=== PATIENT | female | born 1965 | race Caucasian/White ===

== ENCOUNTER 2022-06-23 11:31 | Day surgery (SDC) | payer OTHER, SELFPAY ==
[2022-06-07 14:29] VITALS: BMI 31.1
[2022-06-23 12:05] VITALS: BP 143/100; PULSE 94; RESP 16; TEMP 37; O2SAT 98
[2022-06-23] MEDS: LACTATED RINGERS 1,000 ML 150 ML IV CONT (12:20)
--- NOTE | 2022-06-23 12:42 | P.HP_ITS ---
History of Present Illness History of Present Illness Consent: Risks, benefits, and alternatives have been discussed and questions answered. Patient agrees to proceed with procedure. Chief complaint: History of Colon Polyp Narrative: Reyna Jalloh is a 56 year old female Presents for screening colonoscopy. Patient has a history of a benign polyp removed from the colon 2016. Patient presents today for screening colonoscopy. Patient reports that her current weight appetite bowel movements are normal. She denies abdominal pain. She has had no bleeding. Family history is noncontributory. Review of Systems Review of Systems: Review of systems noncontributory. [facility] Past Medical History Medical History (Updated 06/23/22 @ 12:43 by Ramone Bertrand MD) Hyperlipidemia Hypertension Melanoma in situ Surgical History Surgical History (Updated 05/26/22 @ 15:25 by Meggan Frost [facility]) H/O colonoscopy 10/25/2016 Dr. 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: No Agree to blood products: Yes Meds Home Medications and Allergies Home Medications Medication Instructions Recorded Confirmed Type hydrochlorothiazide 25 mg tablet 25 mg PO DAILY #90 tabs 03/18/22 06/23/22 Rx sodium,potassium,mag sulfates 17.5 See Rx Instructions PO .COMPLEX 05/13/22 06/23/22 Rx gram-3.13 gram-1.6 gram oral soln #354 mL (Suprep Bowel Prep Kit) atorvastatin 10 mg tablet 10 mg PO DAILY #90 tabs 06/15/22 06/23/22 Rx Allergies Allergy/AdvReac Type Severity Reaction Status Date / Time No Known Allergies Allergy Verified 06/23/22 12:07 Vital Signs Vital Signs - 24 hr 06/23/22 12:05 Temperature 98.6 F Pulse Rate 94 Respiratory Rate 16 Blood Pressure 143/100 H Pulse Oximetry 98 Oxygen Delivery Room Air Exam Narrative: Physical exam reveals patient to be alert. Vital signs stable. HEENT exam is unremarkable. Patient is anicteric. Lungs are clear to auscultation and percussion. Heart is without murmur or extra sounds. Abdomen bowel sounds present soft nontender with no organomegaly. Digital external rectal exam is normal. Assessment and Plan Assessment and plan (1) History of colon polyps: Code(s): Z86.010 - Personal history of colonic polyps Status: Acute Assessment and Plan: Patient has a history of a colon polyp in 2017. Plan for surveillance colonoscopy at this time. further recommendations may be given after endoscopy.
--- NOTE | 2022-06-23 12:54 | P.PNAN_ITS ---
Anes - Initial Pre Proc Eval Procedure: Operation Date: 06/23/22 13:30 Proposed Procedures p Screening Colonoscopy - Ramone Bertrand MD Date/Time: 06/23/22 12:54 Surgeon: Ramone Bertrand MD Pre Op Diagnosis: History of Colon Polyp Patient Data Age: 56 Gender: F Height: 1.65 m Weight: 82.5 kg Last Vital Signs Temp 37.0 C 06/23/22 12:05 Pulse 94 06/23/22 12:05 Resp 16 06/23/22 12:05 BP 143/100 H 06/23/22 12:05 Pulse Ox 98 06/23/22 12:05 O2 Del Method Room Air 06/23/22 12:05 Allergies Allergy/AdvReac Type Severity Reaction Status Date / Time No Known Allergies Allergy Verified 06/23/22 12:07 Home Medications Medication Instructions Recorded Confirmed Type hydrochlorothiazide 25 mg tablet 25 mg PO DAILY #90 tabs 03/18/22 06/23/22 Rx sodium,potassium,mag sulfates 17.5 See Rx Instructions PO .COMPLEX 05/13/22 06/23/22 Rx gram-3.13 gram-1.6 gram oral soln #354 mL (Suprep Bowel Prep Kit) atorvastatin 10 mg tablet 10 mg PO DAILY #90 tabs 06/15/22 06/23/22 Rx Patient hx anesthesia problems: none Family hx anesthesia problems: none Results Review: All pre-operative results and documents have been reviewed as part of the pre- operative evaluation. [facility] Past Medical History Medical History Hyperlipidemia Hypertension Melanoma in situ Surgical History Surgical History H/O colonoscopy 10/25/2016 Dr. 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 Informed Consent: The patient's anesthetic plan and its attendant risks and benefits were discussed with the patient/family/POA. Questions were solicited and answers provided to the satisfaction of the patient/family/POA.
[2022-06-23 13:53] VITALS: BP 97/62; PULSE 74; RESP 20; O2SAT 98
[2022-06-23 14:03] VITALS: BP 95/64; PULSE 72; RESP 20; O2SAT 98
--- NOTE | 2022-06-23 14:12 | WPDANESPN ---
Anes - Prog Note Post-Op Date/Time: 06/23/22 14:12 Cardiovascular status: normal Respiratory status: normal Airway patency: baseline Mental status: baseline Vital Signs: Last Vital Signs Temp 37.0 C 06/23/22 12:05 Pulse 72 06/23/22 14:03 Resp 20 06/23/22 14:03 BP 95/64 L 06/23/22 14:03 Pulse Ox 98 06/23/22 14:03 O2 Del Method Room Air 06/23/22 14:03 Pain Score (VAS): 0/10 I/O: Intake & Output 06/22/22 06/23/22 06/23/22 23:59 07:59 15:59 Intake Total 500 Balance 500 Patient Feedback: Patient satisfied with anesthetic care.
[2022-06-23 14:13] VITALS: BP 109/79; PULSE 68; RESP 20; O2SAT 98
== END 2022-06-23 14:24 | disposition home or self-care (01) ==
PROVIDERS: PCP Family Medicine; Visit Provider Internal Medicine Gastroenterology
PROC: 0DJD8ZZ Inspection of Lower Intestinal Tract, Via Natural or Artificial Opening Endoscopic (ICD-10-PCS; CPT 45378; principal; 2022-06-23 13:30)
DX: Z86.010 Personal history of colon polyps (principal)
CPT/HCPCS: 45378

== ENCOUNTER 2022-06-27 17:50 | Emergency (ER) | payer OTHER, SELFPAY ==
[2022-06-27 18:04] VITALS: BP 137/92; PULSE 97; RESP 18; TEMP 36.6; O2SAT 98
--- NOTE | 2022-06-27 18:11 | ED.URI ---
HPI - URI/Sore Throat General Chief Complaint: Upper Respiratory Infection Stated Complaint: cough Time Seen by Provider: 06/27/22 18:05 Source: patient Mode of arrival: ambulatory Limitations: no limitations History of Present Illness HPI Narrative: Ms. Jalloh is a 56-year-old female patient presenting to clinic today with complaints of cough and postnasal drip x2 days. She denies any fever or chills. She denies any sinus headaches or pressure. States her son has had a cough for approximately 1 month and she wanted to come in and get it taken care of early. She is unaware if he had a virus or bacterial infection MD elicited complaint: sore throat and nasal congestion Related Data Allergies Allergy/AdvReac Type Severity Reaction Status Date / Time No Known Allergies Allergy Verified 06/27/22 17:59 Review of Systems Review of Systems: Pertinent positives per HPI. Patient denies any fever, chills, rash, headache, visual changes, dizziness, shortness of breath, chest pain, palpitations, nausea, vomiting, diarrhea, constipation, abdominal pain, or any urinary issues. [facility] Past Medical History Medical History Hyperlipidemia Hypertension Melanoma in situ Surgical History Surgical History H/O colonoscopy 10/25/2016 Dr. 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 There is no relevant family history pertinent to the patient complaint. Exam Narrative: General: Well-developed, well nourished, in no apparent distress Head: Normocephalic, atraumatic Eyes: Pupils equally round and reactive to light bilaterally, EOM intact, sclera and conjunctive clear, no discharge, lids normal Ears: TMs intact and clear, ear canals clear, no drainage, grossly hearing normal. Nose: Nares patent, clear nasal discharge, moderate inflammation, no sinus tenderness. Mouth: Oral pharynx without lesions or masses, good dentition, MMM. Postnasal drip Neck: Supple, trachea midline, no enlargement of anterior or posterior cervical nodes, no thyroid masses or goiter palpable. Cardio: Regular rate and rhythm, s1 and s2 normal, no murmur appreciated. Resp: Clear to auscultation bilaterally, no rhonchi, rales, wheezing or rubs Course Course Emergency Course: Portions of this record may have been created with voice recognition software. Level of Care: Express Care Visit Vital Signs Vital signs: Vital Signs Temperature 36.6 C 06/27/22 18:04 Pulse Rate 97 06/27/22 18:04 Respiratory Rate 18 06/27/22 18:04 Blood Pressure 137/92 H 06/27/22 18:04 Pulse Oximetry 98 06/27/22 18:04 Oxygen Delivery Room Air 06/27/22 18:04 Temperature 36.6 C 06/27/22 18:04 Pulse Rate 97 06/27/22 18:04 Respiratory Rate 18 06/27/22 18:04 Blood Pressure 137/92 H 06/27/22 18:04 Pulse Oximetry 98 06/27/22 18:04 Oxygen Delivery Room Air 06/27/22 18:04 Vital signs reviewed MDM - URI/Sore Throat MDM Narrative Medical decision making narrative: At the time of visit patient is resting comfortably on the exam table. [place]
== END 2022-06-27 18:38 | disposition home or self-care (01) ==
PROVIDERS: Emergency Provider Nurse Practitioner Family; PCP Family Medicine
DX: R09.82 Postnasal drip (principal); J06.9 Acute upper respiratory infection, unspecified; Z20.822 Contact with and (suspected) exposure to COVID-19; E78.5 Hyperlipidemia, unspecified; I10 Essential (primary) hypertension; Z86.006 Personal history of melanoma in-situ
CPT/HCPCS: 87426; 99213; C9803; G0463

== ENCOUNTER 2022-11-28 12:29 | Outpatient (CLI) | payer OTHER, SELFPAY ==
--- NOTE | ~2022-11-28 | CT_ITS ---
Non-contrast Head CT History: Dizziness, paresthesia Technique: Axial non-contrast imaging of the brain was performed. Dose reduction technique was used on this scan by utilizing automated exposure control and iterative reconstruction technique. The dose -length product (DLP) was 605.33 mGy-cm. Findings: There is no evidence of intracranial hemorrhage, mass lesion, or acute infarct. Brain par enchyma appears normal. The ventricles and subarachnoid spaces are normal in size. The calvarium ap pears normal. The visualized paranasal sinuses and mastoid air cells are clear. Impression: No significant abnormality seen. Reviewed, dictated and finalized at location . Impression: No significant abnormality seen.
--- NOTE | ~2022-11-28 | XR_ITS ---
Clinical Indication: Other symptoms of circulatory and respiratory system PA and lateral views of the chest: Comparison: None Findings: The lungs are clear, without evidence of focal consolidation or pleural effusion. Cardiome diastinal silhouette is within normal limits. Bones and soft tissues are unremarkable. Impression: Normal chest. Reviewed, dictated and finalized at location . Impression: Normal chest.
== END 2022-11-28 12:30 | disposition home or self-care (01) ==
PROVIDERS: PCP Family Medicine; Visit Provider Physician Assistant Medical
DX: R20.2 Paresthesia of skin (principal); R42 Dizziness and giddiness; R51.9 Headache, unspecified; R09.89 Other specified symptoms and signs involving the circulatory and respiratory systems
CPT/HCPCS: 70450; 71046

== ENCOUNTER → 2022-11-30 11:19 | Outpatient (CLI) | payer OTHER, SELFPAY ==
--- NOTE | ~2022-11-30 | US_ITS ---
Procedure: Duplex Doppler examination of the bilateral carotids. Indication: Paresthesia Technique: Real time, color-flow and pulse wave Doppler examination of the bilateral carotids was performed. Findings: Remy scale ultrasonography of the right neck demonstrated no significant plaque. There was demonstrat ion of normal color-flow and Doppler waveforms within the right common, internal and external carotid arteries. The peak systolic velocities in the right common, internal and external carotid arteries w ere demonstrated to be 83 cm/sec, 64 cm/sec and 77 cm/sec respectively. The right ICA/CCA ratio was 0 point.The proximal right internal carotid artery demonstrates 0% stenosis relative to the normal dis jennifer artery lumen diameter. Reym scale sonography of the left neck demonstrated no significant plaque. There was demonstration of normal color-flow and wave forms within the left common, internal and external carotid arteries. The peak systolic velocities in the left common, internal and external carotid arteries were demonstrate d to be 91cm/sec, 73 cm/sec and 77 cm/sec respectively. The left ICA/CCA ratio was 0.8. The proximal left internal carotid artery demonstrates 0% stenosis relative to the normal distal artery lumen diam eter. There was antegrade flow demonstrated in the bilateral vertebral arteries. Impression: No hemodynamically significant stenosis of the bilateral internal carotid arteries. Antegrade flow in the bilateral vertebral arteries. Note: The methodology used is an indirect measurement validated against a direct method (such as the NASCET criteria) that compares diameters at the stenosis to the distal ICA. Reviewed, dictated and finalized at location . Impression: No hemodynamically significant stenosis of the bilateral internal carotid arter ies. Antegrade flow in the bilateral vertebral arteries. Note: The methodology used is an indirect measurement validated against a direct meth od (such as the NASCET criteria) that compares diameters at the stenosis to the distal ICA.
--- NOTE | ~2022-11-30 | MR_ITS ---
EXAMINATION: MR brain/brain stem wo/w con DATE: 11/30/2022 12:09 INDICATION: Headache, dizziness and paresthesias TECHNIQUE: Magnetic resonance imaging (MRI) of the brain and brainstem was performed without and with 15 mL Multihance intravenous contrast. Sequences included sagittal and axial T1-weighted SE, axial d iffusion-weighted FS SE, axial T2*-weighted GRE, axial 3D SWAN, axial T2-weighted FLAIR, and axial T2 -weighted FSE. Postcontrast axial and coronal T1-weighted SE was obtained. Apparent diffusion coeffic ient (ADC) maps were created. COMPARISON: CT dated 11/28/22 FINDINGS: There are no areas of restricted diffusion to suggest acute infarction. No intracranial hemorrhage or abnormal intracranial mass lesion. There are no intraparenchymal signal abnormalities seen on the ot her pulse sequences. The ventricles are symmetric and normal in size. There are no abnormal extra-axi al fluid collections. Flow voids are seen in the cerebral arteries on the T2-weighted sequences consi stent with their expected patency. Mild mucosal thickening in the bilateral ethmoid sinuses. Visualiz ed orbits and soft tissues are unremarkable. There are no areas of abnormal enhancement on the post c ontrast images. IMPRESSION: 1. Normal brain. No acute intracranial process or abnormally enhancing lesions. Reviewed, dictated and finalized at location A.
== END ==
PROVIDERS: PCP Physician Assistant Medical; Visit Provider Physician Assistant Medical
DX: R20.2 Paresthesia of skin (principal); R51.9 Headache, unspecified; R42 Dizziness and giddiness
CPT/HCPCS: 70553; 93880; A9577

== ENCOUNTER 2024-01-09 13:47 | Outpatient (CLI) | payer OTHER, SELFPAY ==
--- NOTE | ~2024-01-09 | CT_ITS ---
CT of the Abdomen and Pelvis: Indication: Abdominal pain Technique: 2.5 mm axial scans were obtained through the abdomen and pelvis following intravenous adm inistration of 100 cc of Omnipaque 350. Dose reduction technique was used on this scan by utilizing a utomated exposure control and iterative reconstruction technique. The dose-length product (DLP) was 8 18.69 mGy-cm. Findings: Scans through the lung bases are unremarkable. The liver, spleen, pancreas, gallbladder, adrenals and kidneys are within normal limits. No evidence of aortic aneurysm. No lymphadenopathy. No bowel obstruction or bowel wall thickening. There is no evidence to suggest acute appendicitis. Images through the pelvis were performed. Urinary bladder unremarkable. No pelvic mass seen. No ascit es. Impression: No significant abnormalities seen. Reviewed, dictated and finalized at location . Impression: No significant abnormalities seen.
[2024-01-09 14:07] LABS: Estimated Glomerular Filt Rate > 60
== END 2024-01-09 13:48 ==
PROVIDERS: PCP Physician Assistant Medical; Visit Provider Physician Assistant Medical
DX: R10.31 Right lower quadrant pain (principal); M54.9 Dorsalgia, unspecified
CPT/HCPCS: 74177; Q9967